=== PATIENT | male | born 1950 | race Two or more races ===

== ENCOUNTER 2017-01-11 13:12 | Emergency (ER) | payer OTHER ==
[~2017-01-11] VITALS: Ht 165.1 cm; Wt 90.7 kg
[~2017-01-11 13:12] MED LIST: ACYCLOVIR400 MG ORAL; CLOTRIM ANTIFUN15 GM TP
[2017-01-11] MEDS ORDERED: SIMVASTATIN40 MG ORAL (13:28)
[2017-01-11] MEDS ORDERED: TERAZOSIN HCL1 MG ORAL (13:28)
--- NOTE | 2017-01-11 13:43 | Emergency Room Report ---
History of Present Illness General Chief Complaint: Abdominal Pain Source: Patient Present Illness HPI Patient is a 66-year-old male who presented for increased epigastric and left- sided abdominal pain and cramping. Patient had intermittent episodes for the past 4 days. He states that he been having watery diarrhea. Patient had fever or vomiting. Patient prior history of hypertension. He denies prior abdominal surgeries. Allergies: Coded Allergies: No Known Allergies (Verified Allergy, Unknown, 12/16/08) Patient History Reviewed Nursing Documentation: PMH: Agreed, PSxH: Agreed Nursing Documentation-PM Past Medical History: No History, Except For Hx Hypertension: Yes Review of Systems All Other Systems: negative except mentioned in HPI Physical Exam Vital Signs Date Time Temp Pulse Resp B/P Pulse Ox O2 Delivery O2 Flow Rate FiO2 01/11/17 13:22 97.9 58 20 131/78 98 Room Air Sp02 EP Interpretation: reviewed, normal General Appearance: normal inspection, well appearing, no apparent distress, alert, GCS 15 Head: atraumatic ENT: normal ENT inspection, hearing grossly normal, normal voice Neck: normal inspection, full range of motion, supple, no bony tend Respiratory: normal inspection, lungs clear, normal breath sounds, no respiratory distress, no retraction, no wheezing Cardiovascular #1: regular rate, rhythm, no edema Gastrointestinal: normal inspection, normal bowel sounds, non tender, soft, no guarding, no hernia Genitourinary: no CVA tenderness Musculoskeletal: normal inspection, back normal, normal range of motion Neurologic: normal inspection, alert, oriented x3, responsive, cage cashier III-XII nml as tested, speech normal Psychiatric: normal inspection, judgement/insight normal, mood/affect normal Skin: normal inspection, normal color, no rash Medical Decision Making Diagnostic Impression: Primary Impression: Abdominal pain Additional Impressions: Gastroenteritis 1St degree AV block ER Course Patient presented for abdominal pain. Differential diagnoses included ischemic bowel, appendicitis, perforated viscus, abdominal aortic aneurysm, inferior myocardial infarction, viral gastroenteritis Because of complexity of patient's case laboratory testing and imaging studies were ordered. The patient was noted to be mildly dehydrated was started on IV fluids.Patient was given IV fluids as well as Mylanta with improvement.The patient is advised to follow up with primary care doctor in 1-2 days. Patient is advised to return if any worsening condition or if he began having a dizziness, weakness or if any changes in status that are concerning. Laboratory Tests Test 2/17/17 14:35 White Blood Count 7.0 K/UL (4.8-10.8) Red Blood Count 5.12 M/UL (4.70-6.10) Hemoglobin 14.3 G/DL (14.2-18.0) Hematocrit 43.7 % (42.0-52.0) Mean Corpuscular Volume 85 FL (80-99) Mean Corpuscular Hemoglobin 27.9 PG (27.0-31.0) Mean Corpuscular Hemoglobin Concent 32.7 G/DL (32.0-36.0) Red Cell Distribution Width 12.8 % (11.6-14.8) Platelet Count 227 K/UL (150-450) Mean Platelet Volume 6.5 FL (6.5-10.1) Neutrophils (%) (Auto) 62.8 % (45.0-75.0) Lymphocytes (%) (Auto) 24.1 % (20.0-45.0) Monocytes (%) (Auto) 11.0 % (1.0-10.0) H Eosinophils (%) (Auto) 1.7 % (0.0-3.0) Basophils (%) (Auto) 0.5 % (0.0-2.0) Prothrombin Time Pending Prothrombin Time INR Pending PTT Pending Urine Color Yellow Urine Appearance Clear Urine pH 5 (4.5-8.0) Urine Specific [place] 1.010 (1.005-1.035) Urine Protein Negative (NEGATIVE) Urine Glucose (UA) Negative (NEGATIVE) Urine Ketones Negative (NEGATIVE) Urine Occult Blood 1+ (NEGATIVE) H Urine Nitrite Negative (NEGATIVE) Urine Bilirubin Negative (NEGATIVE) Urine Urobilinogen Normal MG/DL (0.0-1.0) Urine Leukocyte Esterase Negative (NEGATIVE) Urine RBC 0-2 /HPF (0 - 0) H Urine WBC 0-2 /HPF (0 - 0) Urine Squamous Epithelial Cells Occasional /LPF Urine Bacteria Few /HPF (NONE) Sodium Level 140 mEQ/L (135-145) Potassium Level 4.3 mEQ/L (3.4-4.9) Chloride Level 102 mEQ/L (98-107) Carbon Dioxide Level 21 mEQ/L (20-30) Anion Gap 17 (5-15) H Blood Urea Nitrogen 11 mg/dL (7-23) Creatinine 0.9 mg/dL (0.7-1.2) Estimate Glomerular Filtration Rate > 60 mL/min (>60) Glucose Level 81 mg/dL (74-106) Calcium Level 8.1 mg/dL (8.6-10.2) L Total Bilirubin 0.3 mg/dL (0.0-1.2) Aspartate Amino Transferase (AST) 37 U/L (5-40) Alanine Aminotransferase (ALT) 32 U/L (3-41) Alkaline Phosphatase 91 U/L (40-129) Troponin I < 0.30 ng/mL (<=0.30) Total Protein 6.5 g/dL (6.6-8.7) L Albumin 3.9 g/dL (3.5-5.2) Globulin 2.6 g/dL Albumin/Globulin Ratio 1.5 (1.0-2.7) Lipase 33 U/L (< 60) EKG Diagnostic Results Rate: bradycardiac - 1st degree av block Rhythm: other ST Segments: no acute changes Last Vital Signs Date Time Temp Pulse Resp B/P Pulse Ox O2 Delivery O2 Flow Rate FiO2 01/11/17 13:22 97.9 58 20 131/78 98 Room Air Status: improved Disposition: HOME, SELF-CARE Condition: Stable Scripts Dicyclomine Hcl* (BENTYL*) 10 Mg Capsule 10 MG ORAL FOUR TIMES A DAY, #20 CAP Prov: Linus Wheatley 01/11/17 Loperamide HCl (Loperamide) 2 Mg Capsule 2 MG ORAL Q4H, #20 CAP 0 Refills Prov: Linus Wheatley 01/11/17 Linus Wheatley Jan 11, 2017 13:43
[2017-01-11] MEDS ORDERED: Dicyclomine HCl 10mg/5ml oral soln ORAL ONE (13:45)
[2017-01-11] MEDS ORDERED: Loperamide 2mg cap ORAL ONE (13:45)
[2017-01-11 14:31] VITALS: BP 128/70
[2017-01-11 14:58] LABS: BASOPHILS % (AUTO) 0.5 % (0.0-2.0); EOSINOPHILS % (AUTO) 1.7 % (0.0-3.0); LYMPHOCYTES % (AUTO) 24.1 % (20.0-45.0); MEAN CORPUSCULAR HEMOGLOBIN 27.9 PG (27.0-31.0); MEAN CORPUSCULAR HGB CONC 32.7 G/DL (32.0-36.0); MEAN CORPUSCULAR VOLUME 85 FL (80-99); MEAN PLATELET VOLUME 6.5 FL (6.5-10.1); NEUTROPHILS % (AUTO) 62.8 % (45.0-75.0); PLATELET COUNT 227 K/UL (150-450); RED BLOOD COUNT 5.12 M/UL (4.70-6.10); RED CELL DISTRIBUTION WIDTH 12.8 % (11.6-14.8)
[2017-01-11] MEDS ORDERED: BENTYL10 MG ORAL (15:00)
[2017-01-11] MEDS ORDERED: IMODIUM2 MG ORAL (15:00)
[2017-01-11 15:05] LABS: APPEARANCE,URINE CLEAR; KETONES,URINE NEGATIVE (NEGATIVE); LEUKOCYTE ESTERASE ,URINE NEGATIVE (NEGATIVE); NITRITE,URINE NEGATIVE (NEGATIVE); PH,URINE 5 (4.5-8.0); PROTEIN,URINE NEGATIVE (NEGATIVE); UROBILINOGEN,URINE NORMAL MG/DL (0.0-1.0)
[2017-01-11 15:18] LABS: ALANINE AMINOTRANSFERASE 32 U/L (3-41); ALBUMIN/GLOBULIN RATIO 1.5 (1.0-2.7); ANION GAP 17 (5-15); ASPARTATE AMINO TRANSFERASE 37 U/L (5-40); BACTERIA,URINE FEW /HPF; CALCIUM 8.1 mg/dL (8.6-10.2); CARBON DIOXIDE 21 mEQ/L (20-30); CHLORIDE 102 mEQ/L (98-107); CREATININE 0.9 mg/dL (0.7-1.2); GLOMERULAR FILTRATION RATE > 60 mL/min (>60); HEMOLYSIS 126; LIPASE 33 U/L (< 60); POTASSIUM 4.3 mEQ/L (3.4-4.9); RBC,URINE 0-2 /HPF (0 - 0); SODIUM 140 mEQ/L (135-145); SQUAMOUS EPITHELIAL CELL,UR OCCASIONAL /LPF (NONE/OCC); TOTAL PROTEIN 6.5 g/dL (6.6-8.7); WBC,URINE 0-2 /HPF (0 - 0)
[2017-01-11 15:20] LABS: TROPONIN I < 0.30 ng/mL (<=0.30)
[2017-01-11 15:27] LABS: PROTHROMBIN TIME 10.6 SEC (9.30-11.50)
[2017-01-11 16:02] VITALS: BP 128/70
== END 2017-01-11 16:03 | disposition home or self-care (01) ==
LOC: EMR 13:40
DX: K52.9 Noninfective gastroenteritis and colitis, unspecified (principal); I44.0 Atrioventricular block, first degree; I10 Essential (primary) hypertension
CPT/HCPCS: 36415; 80053; 81003; 83690; 84484; 85025; 85610; 85730; 96374; 96375; 99284; J2405

== ENCOUNTER 2017-02-10 14:14 | Emergency (ER) | payer OTHER ==
[~2017-02-10] VITALS: Ht 165.1 cm; Wt 90.7 kg
[~2017-02-10 14:14] MED LIST changes: +BENTYL10 MG ORAL; +IMODIUM2 MG ORAL; +SIMVASTATIN40 MG ORAL; +TERAZOSIN HCL1 MG ORAL
--- NOTE | 2017-02-10 14:56 | Emergency Room Report ---
History of Present Illness General Chief Complaint: Upper Respiratory Illness Source: Patient (JORDINFAMILIAROSALINE P.A.) Source: Patient (MARGARITA YUN D.O.) Present Illness HPI Patient complains of cough congestion for one week. Associated symptoms include shortness of breath, wheezing, fatigue, body aches, cough is nonproductive, chill. No protein or relieving factors.Denies any current n/v/f/ c/d, abd pain, back pain, neck pain, photophobia, phonophobia, CP or headache. (ROSALINE LOCO.AEdie) HPI Please refer to initial note for the history and exam Patient does complain of over one week of URI symptoms including cough and congestion Denies any chest pain or pleurisy (MARGARITA YUN D.O.) Allergies: Coded Allergies: No Known Allergies (Verified Allergy, Unknown, 12/16/08) Patient History Past Medical History: see triage record Pertinent Family History: none Reviewed Nursing Documentation: PMH: Agreed, PSxH: Agreed (MARGARITA YUN D.O.) Nursing Documentation-PMH Hx Hypertension: Yes (ROSALINE LOCO P.A.) Review of Systems All Other Systems: negative except mentioned in HPI (MARGARITA YUN D.O.) Physical Exam Vital Signs Date Time Temp Pulse Resp B/P Pulse Ox O2 Delivery O2 Flow Rate FiO2 02/10/17 14:31 99.7 97 18 132/78 98 Room Air (ROSALINE LOCO P.A.) 98% on room air which is a normal oxygenation Sp02 EP Interpretation: reviewed, normal General Appearance: well appearing, no apparent distress Head: normocephalic, atraumatic Eyes: bilateral eye EOMI, bilateral eye PERRL ENT: hearing grossly normal, normal pharynx, TMs + canals normal, uvula midline Neck: full range of motion, supple, no meningismus, no bony tend Respiratory: no rhonchi, no respiratory distress, no retraction, no accessory muscle use, crackles - Fine crackles noted both lower lobes Cardiovascular #1: normal peripheral pulses, regular rate, rhythm, no edema, no gallop, no JVD, no murmur Gastrointestinal: normal bowel sounds, non tender, soft, no mass, no organomegaly, non-distended, no guarding, no hernia, no pulsatile mass, no rebound Genitourinary: no CVA tenderness Musculoskeletal: normal inspection Neurologic: oriented x3, responsive, optical coating technician III-XII nml as tested, motor strength/ tone normal, sensory intact Psychiatric: mood/affect normal Skin: normal color, no rash, warm/dry, palpation normal Lymphatic: normal inspection, no adenopathy (MARGARITA YUN D.O.) Medical Decision Making PA Attestation Dr. Yun is my supervising physician with whom patient management has been discussed with. (ROSALINE LOCO) Diagnostic Impression: Primary Impression: Upper respiratory infection ER Course care of this patient was transferred to Dr. Yun (ROSALINE LOCO.Chuy) ER Course Patient is a fairly complex patient with multiple differential to consideration including but not limited to cardiac cardiopulmonary and vascular emergencies The patient's white blood cell count is minimally elevated Chest x-ray was normal Patient on reevaluation continues to saturate well lung sounds are appropriate The site appears the patient has symptoms of URI findings Will be placed on symptomatic medication and follow up closely Labs Test 02/10/17 15:30 White Blood Count 12.8 K/UL (4.8-10.8) Red Blood Count 4.97 M/UL (4.70-6.10) Hemoglobin 13.9 G/DL (14.2-18.0) Hematocrit 42.1 % (42.0-52.0) Mean Corpuscular Volume 85 FL (80-99) Mean Corpuscular Hemoglobin 28.0 PG (27.0-31.0) Mean Corpuscular Hemoglobin Concent 33.1 G/DL (32.0-36.0) Red Cell Distribution Width 12.6 % (11.6-14.8) Platelet Count 243 K/UL (150-450) Mean Platelet Volume 6.2 FL (6.5-10.1) Neutrophils (%) (Auto) 78.9 % (45.0-75.0) Lymphocytes (%) (Auto) 11.3 % (20.0-45.0) Monocytes (%) (Auto) 7.6 % (1.0-10.0) Eosinophils (%) (Auto) 1.4 % (0.0-3.0) Basophils (%) (Auto) 0.8 % (0.0-2.0) Urine Color Pale yellow Urine Appearance Clear Urine pH 6.5 (4.5-8.0) Urine Specific [place] 1.010 (1.005-1.035) Urine Protein Negative (NEGATIVE) Urine Glucose (UA) Negative (NEGATIVE) Urine Ketones Negative (NEGATIVE) Urine Occult Blood Negative (NEGATIVE) Urine Nitrite Negative (NEGATIVE) Urine Bilirubin Negative (NEGATIVE) Urine Urobilinogen Normal MG/DL (0.0-1.0) Urine Leukocyte Esterase 1+ (NEGATIVE) Urine RBC 0 /HPF (0 - 0) Urine WBC 2-4 /HPF (0 - 0) Urine Squamous Epithelial Cells Occasional /LPF Urine Bacteria Few /HPF (NONE) Sodium Level 141 mEQ/L (135-145) Potassium Level 3.5 mEQ/L (3.4-4.9) Chloride Level 101 mEQ/L (98-107) Carbon Dioxide Level 24 mEQ/L (20-30) Anion Gap 16 (5-15) Blood Urea Nitrogen 13 mg/dL (7-23) Creatinine 1.0 mg/dL (0.7-1.2) Estimat Glomerular Filtration Rate > 60 mL/min (>60) Glucose Level 100 mg/dL (74-106) Lactic Acid Level 1.40 mmol/L (0.66-2.22) Calcium Level 9.0 mg/dL (8.6-10.2) Total Bilirubin 0.2 mg/dL (0.0-1.2) Aspartate Amino Transf (AST/SGOT) 19 U/L (5-40) Alanine Aminotransferase (ALT/SGPT) 19 U/L (3-41) Alkaline Phosphatase 99 U/L (40-129) Total Protein 6.6 g/dL (6.6-8.7) Albumin 4.2 g/dL (3.5-5.2) Globulin 2.4 g/dL Albumin/Globulin Ratio 1.7 (1.0-2.7) (MARGARITA YUN.OEdie) EKG Diagnostic Results Rate: normal Rhythm: NSR ST Segments: no acute changes (MARGARITA YUN D.O.) Rhythm Strip Diag. Results EP Interpretation: yes Rate: 66 Rhythm: NSR, no PVC's, no ectopy (MARGARITA YUN.OEdie) Chest X-Ray Diagnostic Results EP Interpretation: Yes Findings: no consolidation, no effusion, no pneumothorax Number of Views: 1 (MARGARITA YUN D.O.) Last Vital Signs Date Time Temp Pulse Resp B/P Pulse Ox O2 Delivery O2 Flow Rate FiO2 02/10/17 14:31 99.7 97 18 132/78 98 Room Air (ROSALINE LOCO.Chuy) Status: improved (MARGARITA YUN D.O.) Disposition: HOME, SELF-CARE Condition: Improved Scripts Ibuprofen* (MOTRIN*) 600 Mg Tablet 600 MG ORAL Q8H Y for For Pain, #20 TAB 0 Refills Prov: MARGARITA YUN D.O. 02/10/17 Promethazine HCl/Codeine (Prometh-Codein 6.25-10 mg/5 ml) 5 Ml Syrup 5 ML PO QHS for 5 Days, ML Prov: MARGARITA YUN D.O. 02/10/17 Additional Instructions: Patient is provided with the discharge instructions notified to follow up with primary doctor in the next 2-3 days otherwise return to the er with any worsening symptoms. Please note that this report is being documented using [employer] technology. This can lead to erroneous entry secondary to incorrect interpretation by the dictating instrument. ROSALINE LOCO Feb 10, 2017 14:56 MARGARITA YUN D.O. Feb 10, 2017 22:15
[2017-02-10 15:41] VITALS: BP 127/99
[2017-02-10 15:46] LABS: BASOPHILS % (AUTO) 0.8 % (0.0-2.0); EOSINOPHILS % (AUTO) 1.4 % (0.0-3.0); LYMPHOCYTES % (AUTO) 11.3 % (20.0-45.0); MEAN CORPUSCULAR HGB CONC 33.1 G/DL (32.0-36.0); MEAN CORPUSCULAR VOLUME 85 FL (80-99); MEAN PLATELET VOLUME 6.2 FL (6.5-10.1); MONOCYTES % (AUTO) 7.6 % (1.0-10.0); NEUTROPHILS % (AUTO) 78.9 % (45.0-75.0); PLATELET COUNT 243 K/UL (150-450); RED BLOOD COUNT 4.97 M/UL (4.70-6.10); RED CELL DISTRIBUTION WIDTH 12.6 % (11.6-14.8); WHITE BLOOD COUNT 12.8 K/UL (4.8-10.8)
[2017-02-10 15:49] LABS: APPEARANCE,URINE CLEAR; KETONES,URINE NEGATIVE (NEGATIVE); LEUKOCYTE ESTERASE ,URINE 1+ (NEGATIVE); NITRITE,URINE NEGATIVE (NEGATIVE); PH,URINE 6.5 (4.5-8.0); PROTEIN,URINE NEGATIVE (NEGATIVE); UROBILINOGEN,URINE NORMAL MG/DL (0.0-1.0)
[2017-02-10 15:57] LABS: BACTERIA,URINE FEW /HPF; RBC,URINE 0 /HPF (0 - 0); SQUAMOUS EPITHELIAL CELL,UR OCCASIONAL /LPF (NONE/OCC)
[2017-02-10 16:04] LABS: ALANINE AMINOTRANSFERASE 19 U/L (3-41); ALBUMIN/GLOBULIN RATIO 1.7 (1.0-2.7); ANION GAP 16 (5-15); ASPARTATE AMINO TRANSFERASE 19 U/L (5-40); CARBON DIOXIDE 24 mEQ/L (20-30); CHLORIDE 101 mEQ/L (98-107); GLOMERULAR FILTRATION RATE > 60 mL/min (>60); HEMOLYSIS 7; POTASSIUM 3.5 mEQ/L (3.4-4.9); SODIUM 141 mEQ/L (135-145); TOTAL PROTEIN 6.6 g/dL (6.6-8.7)
[2017-02-10] MEDS ORDERED: PROMETH-CODEIN 65 ML PO (16:36)
[2017-02-10] MEDS ORDERED: IBUPROFEN600 MG ORAL (16:36)
[2017-02-10] MEDS ORDERED: AZITHROMYCIN250 MG ORAL (16:36)
[2017-02-10 16:57] VITALS: BP 127/99
--- NOTE | 2017-02-11 10:24 | Diagnostic Imaging Report ---
Indication: SOB Technique: One view of the chest Comparison: 12/18/2008 Findings: Lungs and pleural spaces are clear. Heart size is normal. Cervical spine fusion hardware is again demonstrated. The aorta is tortuous. Previously demonstrated atelectatic changes are no longer evident Impression: No acute process
--- NOTE | 2017-02-12 11:28 | Cardiology Report ---
APPROVED REPORT EKG Measurement Heart [id number] Sinus rhythm with 1st degree AV block Otherwise normal ECG
== END 2017-02-10 16:58 | disposition home or self-care (01) ==
LOC: EMR 14:57
DX: J06.9 Acute upper respiratory infection, unspecified (principal); I10 Essential (primary) hypertension
CPT/HCPCS: 36415; 71010; 80053; 81003; 83605; 85025; 87040; 93005; 99284

== ENCOUNTER → 2017-11-22 | Emergency (ER) | payer MEDICARE, OTHER ==
[~2017-11-22] VITALS: Ht 160 cm; Wt 68.0 kg
[~2017-11-22] MED LIST changes: +ANTI-DIARRHEA2 MG PO; +AZITHROMYCIN250 MG ORAL; +Dicyclomine HCl 10mg/5ml oral soln ORAL ONE; +IBUPROFEN600 MG ORAL; +KEFLEX500 MG ORAL; +Loperamide 2mg cap ORAL ONE; +PROMETH-CODEIN 65 ML PO
[2017-11-22 12:21] LABS: APPEARANCE,URINE CLEAR; BILIRUBIN, URINE NEGATIVE (NEGATIVE); GLUCOSE, URINE (UA) NEGATIVE (NEGATIVE); KETONES,URINE NEGATIVE (NEGATIVE); LEUKOCYTE ESTERASE ,URINE 1+ (NEGATIVE); NITRITE,URINE NEGATIVE (NEGATIVE); PH,URINE 5 (4.5-8.0); PROTEIN,URINE NEGATIVE (NEGATIVE); UROBILINOGEN,URINE NORMAL MG/DL (0.0-1.0)
[2017-11-22 12:24] LABS: COLOR,URINE YELLOW
[2017-11-22 12:41] LABS: BASOPHILS % (AUTO) 1.1 % (0.0-2.0); EOSINOPHILS % (AUTO) 1.7 % (0.0-3.0); HEMOGLOBIN 14.1 G/DL (14.2-18.0); LYMPHOCYTES % (AUTO) 22.3 % (20.0-45.0); MEAN CORPUSCULAR VOLUME 88 FL (80-99); MONOCYTES % (AUTO) 8.9 % (1.0-10.0); NEUTROPHILS % (AUTO) 66.1 % (45.0-75.0); PLATELET COUNT 244 K/UL (150-450); RED BLOOD COUNT 4.91 M/UL (4.70-6.10); RED CELL DISTRIBUTION WIDTH 12.9 % (11.6-14.8); WHITE BLOOD COUNT 7.7 K/UL (4.8-10.8)
[2017-11-22 12:49] LABS: ANION GAP 10 mmol/L (5-15); BLOOD UREA NITROGEN 14 mg/dL (7-18); CALCIUM 7.9 MG/DL (8.5-10.1); CARBON DIOXIDE 25 MMOL/L (21-32); CHLORIDE 111 MMOL/L (98-107); POTASSIUM 3.8 MMOL/L (3.5-5.1); SODIUM 145 MMOL/L (136-145)
[2017-11-22 12:56] LABS: ALANINE AMINOTRANSFERASE 46 U/L (12-78); ALBUMIN/GLOBULIN RATIO 1.2 (1.0-2.7); ALKALINE PHOSPHATASE 122 U/L (46-116); ASPARTATE AMINO TRANSFERASE 26 U/L (15-37); BILIRUBIN,TOTAL 0.3 MG/DL (0.2-1.0)
[2017-11-22 13:00] VITALS: BP 135/79
[2017-11-22 13:55] VITALS: BP 135/79
--- NOTE | 2017-11-22 13:58 | Diagnostic Imaging Report ---
Indication: Abdominal pain Technique: Continuous helical transaxial imaging of the abdomen and pelvis was obtained from the lung bases to the pubic symphysis. No intravenous contrast was administered. Coronal 2-D reformats were also obtained. Automatic Exposure Control was utilized. Total Dose length Product (DLP): 1080.[address] Dose Index Volume (CTDIvol): 19.75 mGy Comparison: 12/15/2013, 10/06/2013 Findings: Lung bases are clear. Normal appendix noted. Mild arterial calcifications demonstrated distal aorta and iliac arteries. Few diverticula are noted. There is no evidence of acute diverticulitis. There is no nephrolithiasis or hydronephrosis identified. Gallbladder is contracted but grossly unremarkable otherwise. There is a tiny liver hypodensity too small to characterize. Spleen is normal size. Accessory spleen noted. There is no ascites or free air. Prostate calcification noted. Small left inguinal hernia is suspected. IMPRESSION: No acute findings appreciated. Several chronic findings as described above. The CT scanner at [facility] is accredited by the [employer] and the scans are performed using dose optimization techniques as appropriate to a performed exam including Automatic Exposure control.
--- NOTE | 2017-11-29 01:07 | Emergency Room Report ---
History of Present Illness General Chief Complaint: Nausea, Vomiting, and Diarrhea Present Illness HPI Patient is a 67-year-old male who presented after increased nausea and vomiting. Patient gradual onset of symptoms in the past few days. Patient reported having multiple episodes of vomiting as well as diarrhea. He denied hematemesis or bloody stools. The patient reported having primarily epigastric pain which is crampy in nature. Allergies: Coded Allergies: No Known Allergies (Verified Allergy, Unknown, 12/16/08) Patient History Past Medical History: see triage record Reviewed Nursing Documentation: PMH: Agreed, PSxH: Agreed Nursing Documentation-PMH Hx Hypertension: Yes Review of Systems All Other Systems: negative except mentioned in HPI Physical Exam Vital Signs Date Time Temp Pulse Resp B/P (MAP) Pulse Ox O2 Delivery O2 Flow Rate FiO2 11/22/17 11:25 97.3 71 20 132/75 99 Room Air Sp02 EP Interpretation: reviewed, normal General Appearance: normal inspection, well appearing, no apparent distress, alert, GCS 15, non-toxic Head: atraumatic ENT: normal ENT inspection, hearing grossly normal, normal voice Neck: normal inspection, full range of motion, supple, no bony tend Respiratory: normal inspection, lungs clear, normal breath sounds, no respiratory distress, no retraction, no wheezing Cardiovascular #1: regular rate, rhythm, no edema Gastrointestinal: normal inspection, normal bowel sounds, non tender, soft, no guarding, no hernia Genitourinary: no CVA tenderness Musculoskeletal: normal inspection, back normal, normal range of motion Neurologic: normal inspection, alert, oriented x3, responsive, hydraulic tester III-XII nml as tested, speech normal Psychiatric: normal inspection, judgement/insight normal, mood/affect normal Skin: normal inspection, normal color, no rash Medical Decision Making Diagnostic Impression: Primary Impression: Gastroenteritis Additional Impression: UTI (urinary tract infection) ER Course Patient presented for abdominal pain. Differential diagnoses included ischemic bowel, appendicitis, perforated viscus, abdominal aortic aneurysm, inferior myocardial infarction, viral gastroenteritis. Because of complexity of patient' s case laboratory testing and imaging studies were ordered.The CT imaging showed no evidence of obstruction or appendicitis. I laboratory testing showed evidence of urinary tract infection. Patient was given IV fluids as well as IV antiemetics. The patient is advised to follow up with primary care doctor in 1-2 days. Patient is advised to return if any worsening condition or if any changes in status that are concerning. This report is dictated with [employer] desk officer software which may occasionally lead to discrepancies related to use of this software. Labs Test 11/22/17 11:30 11/22/17 12:22 Urine Color Yellow Urine Appearance Clear Urine pH 5 (4.5-8.0) Urine Specific [place] 1.025 (1.005-1.035) Urine Protein Negative (NEGATIVE) Urine Glucose (UA) Negative (NEGATIVE) Urine Ketones Negative (NEGATIVE) Urine Occult Blood Negative (NEGATIVE) Urine Nitrite Negative (NEGATIVE) Urine Bilirubin Negative (NEGATIVE) Urine Urobilinogen Normal MG/DL (0.0-1.0) Urine Leukocyte Esterase 1+ (NEGATIVE) Urine RBC 0-2 /HPF (0 - 0) Urine WBC 2-4 /HPF (0 - 0) Urine Squamous Epithelial Cells Occasional /LPF Urine Bacteria Occasional /HPF (NONE) Urine Mucus Moderate /LPF (NONE/OCC) White Blood Count 7.7 K/UL (4.8-10.8) Red Blood Count 4.91 M/UL (4.70-6.10) Hemoglobin 14.1 G/DL (14.2-18.0) Hematocrit 43.0 % (42.0-52.0) Mean Corpuscular Volume 88 FL (80-99) Mean Corpuscular Hemoglobin 28.8 PG (27.0-31.0) Mean Corpuscular Hemoglobin Concent 32.8 G/DL (32.0-36.0) Red Cell Distribution Width 12.9 % (11.6-14.8) Platelet Count 244 K/UL (150-450) Mean Platelet Volume 6.5 FL (6.5-10.1) Neutrophils (%) (Auto) 66.1 % (45.0-75.0) Lymphocytes (%) (Auto) 22.3 % (20.0-45.0) Monocytes (%) (Auto) 8.9 % (1.0-10.0) Eosinophils (%) (Auto) 1.7 % (0.0-3.0) Basophils (%) (Auto) 1.1 % (0.0-2.0) Sodium Level 145 MMOL/L (136-145) Potassium Level 3.8 MMOL/L (3.5-5.1) Chloride Level 111 MMOL/L (98-107) Carbon Dioxide Level 25 MMOL/L (21-32) Anion Gap 10 mmol/L (5-15) Blood Urea Nitrogen 14 mg/dL (7-18) Creatinine 1.0 MG/DL (0.55-1.30) Estimat Glomerular Filtration Rate > 60 mL/min (>60) Glucose Level 92 MG/DL (74-106) Calcium Level 7.9 MG/DL (8.5-10.1) Total Bilirubin 0.3 MG/DL (0.2-1.0) Aspartate Amino Transf (AST/SGOT) 26 U/L (15-37) Alanine Aminotransferase (ALT/SGPT) 46 U/L (12-78) Alkaline Phosphatase 122 U/L (46-116) Total Protein 7.3 G/DL (6.4-8.2) Albumin 4.0 G/DL (3.4-5.0) Globulin 3.3 g/dL Albumin/Globulin Ratio 1.2 (1.0-2.7) Last Vital Signs Date Time Temp Pulse Resp B/P (MAP) Pulse Ox O2 Delivery O2 Flow Rate FiO2 11/22/17 13:55 97.5 90 20 135/79 99 Room Air Status: improved Disposition: HOME, SELF-CARE Condition: Stable Scripts Cephalexin* (KEFLEX*) 500 Mg Capsule 500 MG ORAL Q6H, #28 CAP 0 Refills Prov: Linus Wheatley 11/22/17 Loperamide Hcl (ANTI-DIARRHEA) 2 Mg Tablet 2 MG PO Q12HR, #14 TAB Prov: Linus Wheatley 11/22/17 Dicyclomine Hcl* (BENTYL*) 10 Mg Capsule 10 MG ORAL FOUR TIMES A DAY, #20 CAP Prov: Linus Wheatley 11/22/17 Patient Instructions: Viral Gastroenteritis, Adult Linus Wheatley Nov 29, 2017 01:07
== END | disposition home or self-care (01) ==
LOC: EMR 13:03
DX: K52.9 Noninfective gastroenteritis and colitis, unspecified (principal); N39.0 Urinary tract infection, site not specified; I10 Essential (primary) hypertension
CPT/HCPCS: 36415; 74176; 80053; 81001; 85025; 99284

== ENCOUNTER 2018-02-27 12:34 | Emergency (ER) | payer MEDICARE ==
[~2018-02-27] VITALS: Ht 165.1 cm; Wt 90.7 kg
[~2018-02-27 12:34] MED LIST changes: -Dicyclomine HCl 10mg/5ml oral soln ORAL ONE; -Loperamide 2mg cap ORAL ONE
[2018-02-27 12:59] VITALS: BP 133/81
--- NOTE | 2018-02-27 13:09 | Emergency Room Report ---
History of Present Illness General Chief Complaint: Upper Respiratory Illness Source: Patient, Medical Record Present Illness HPI 67-year-old male presents to the emergency department complaining of nonproductive cough, sore throat that is 6 out of 10 in severity, nasal congestion, rhinorrhea and progressive pain in the rib cage area with coughing. Patient states his symptoms of been ongoing for 1 week. Pt. also reports painful cold sores on the lower lilp. Patient has a history of high blood pressure and arthritis. Patient denies orthopnea or history of heart problems. Patient denies lower extremity edema. Denies left sided chest or arm pain, Palpitations, LOC, AMS, dizziness, Changes in Vision, Sensation, paresthesias, or a sudden severe headache. Allergies: Coded Allergies: No Known Allergies (Verified Allergy, Unknown, 12/16/08) Patient History Past Medical History: see triage record, HTN Past Surgical History: none Pertinent Family History: none Reviewed Nursing Documentation: PMH: Agreed; PSxH: Agreed Nursing Documentation-PMH Past Medical History: No Stated History Hx Hypertension: Yes Review of Systems All Other Systems: negative except mentioned in HPI Physical Exam Vital Signs Date Time Temp Pulse Resp B/P (MAP) Pulse Ox O2 Delivery O2 Flow Rate FiO2 4/18 12:43 98.5 63 18 133/81 95 Room Air 98.4 Sp02 EP Interpretation: reviewed, normal General Appearance: no apparent distress, alert, GCS 15, non-toxic Head: normocephalic, atraumatic ENT: hearing grossly normal, normal pharynx, normal voice, other - two cold sores on the lower lip. Neck: full range of motion, no meningismus, no bony tend Respiratory: chest non-tender, lungs clear, normal breath sounds, no respiratory distress, no wheezing, speaking full sentences Cardiovascular #1: regular rate, rhythm, no edema Gastrointestinal: non tender, soft Musculoskeletal: back normal, gait/station normal, normal range of motion, non- tender Neurologic: alert, oriented x3, responsive, motor strength/tone normal, sensory intact, normal gait, speech normal, grossly normal Psychiatric: judgement/insight normal Skin: normal color, warm/dry, well hydrated, other - two cold sores on the lower lip. Lymphatic: no adenopathy Medical Decision Making PA Attestation Dr. Wheatley is my supervising Physician whom patient management has been discussed with. Diagnostic Impression: Primary Impression: Upper respiratory symptom Additional Impression: Cold sore ER Course 67-year-old male presents to the emergency department complaining of nonproductive cough, sore throat that is 6 out of 10 in severity, nasal congestion, rhinorrhea and progressive pain in the rib cage area with coughing. Patient states his symptoms of been ongoing for 1 week. Pt. also reports painful cold sores on the lower lilp. Patient has a history of high blood pressure and arthritis. Patient denies orthopnea or history of heart problems. Patient denies lower extremity edema. Denies left sided chest or arm pain, Palpitations, LOC, AMS, dizziness, Changes in Vision, Sensation, paresthesias, or a sudden severe headache. Ddx considered but are not limited to URI, pneumonia, PE, strep pharyngitis, meningitis, MA/CHF Vital signs: Pt.is afebrile VS are WNL H&PE are most consistent with upper respiratory infection no evidence to suggest bacteria at this time. I did consider cardiac etiology due to patient' s age and history of high blood pressure. However patient's presentation is nontoxic and in no acute distress. Given symptoms of multiple body systems primarily in the upper respiratory area my impression is that he is presenting most consistently with a viral upper respiratory infection. ORDERS: none required at this time, the diagnosis is clinical ED INTERVENTIONS: None required at this time. This patient is given ED return precautions for worsening or new symptoms. I' ve instructed the patient follow up with his primary care provider in approximately 3-5 days. Discussed with patient that he'll be treated conservatively in addition to oral acyclovir for his cold sores DISCHARGE: At this time pt. is stable for d/c to home. Will provide printed patient care instructions, and any necessary prescriptions. Care plan and follow up instructions have been discussed with the patient prior to discharge. Last Vital Signs Date Time Temp Pulse Resp B/P (MAP) Pulse Ox O2 Delivery O2 Flow Rate FiO2 02/27/18 12:43 98.5 63 18 133/81 95 Room Air 98.4 Disposition: HOME, SELF-CARE Condition: Stable Scripts Acetaminophen* (TYLENOL EXTRA STRENGTH*) 500 Mg Tablet 500 MG ORAL Q6H PRN for Mild Pain/Temp > 100.5, #20 TAB 0 Refills Prov: Zahra Lee.Chuy 02/27/18 Loratadine/Pseudoephedrine (CLARITIN-D 12 HOUR TABLET) 1 Each Tab.er.12h 1 TAB ORAL EVERY 12 HOURS for 7 Days, #14 TAB Prov: Zahra Lee 02/27/18 Codeine/Promethazine Hcl* (PROMETHAZINE-CODEINE SYRUP*) 118 Ml Syrup 5 ML ORAL Q6H PRN for For Cough, #120 ML 0 Refills Prov: Zahra Lee 02/27/18 Acyclovir* (ZOVIRAX*) 800 Mg Tablet 800 MG ORAL THREE TIMES A DAY for 7 Days, #21 CAP 0 Refills Prov: Zahra Lee 02/27/18 Patient Instructions: Cold Sore, [id number], Upper Respiratory Infection, Adult Additional Instructions: Take medications as directed. Follow up with a Primary Care Provider in 3-5 days, even if your symptoms have resolved. --Please review list of primary care clinics, if you do not already have a primary care provider Return sooner to ED if new symptoms occur, or current symptoms become worse. Do not drink alcohol, drive, or operate heavy machinery while taking Cough Syrup as this may cause drowsiness. - Please note that this Emergency Department Report was dictated using [employer] machine worker technology software, occasionally this can lead to erroneous entry secondary to interpretation by the dictation equipment. Zahra Lee Feb 27, 2018 13:09
[2018-02-27] MEDS ORDERED: TYLENOL EXTRA500 MG ORAL (13:29)
[2018-02-27] MEDS ORDERED: PROMETHAZINE-C118 M1 ORAL (13:29)
[2018-02-27] MEDS ORDERED: CLARITIN-D 121 EAC1 ORAL (13:29)
[2018-02-27] MEDS ORDERED: ZOVIRAX800 MG ORAL (13:29)
[2018-02-27 13:41] VITALS: BP 122/78
== END 2018-02-27 13:43 | disposition home or self-care (01) ==
LOC: EMR 13:23
DX: R05 Cough (principal); B00.1 Herpesviral vesicular dermatitis; I10 Essential (primary) hypertension
CPT/HCPCS: 99284

== ENCOUNTER 2018-03-02 03:57 | Emergency (ER) | payer MEDICARE ==
[~2018-03-02] VITALS: Ht 162.6 cm; Wt 90.7 kg
[~2018-03-02 03:57] MED LIST changes: +CLARITIN-D 121 EAC1 ORAL; +PROMETHAZINE-C118 M1 ORAL; +TYLENOL EXTRA500 MG ORAL; +ZOVIRAX800 MG ORAL
[2018-03-02 04:15] VITALS: BP 148/89
[2018-03-02] MEDS ORDERED: Ipratropium 0.02% Inh Soln 2.5ml UD HHN ONE (04:15)
[2018-03-02] MEDS ORDERED: Albuterol ud Inhalation HHN ONE (04:15)
--- NOTE | 2018-03-02 04:29 | Emergency Room Report ---
History of Present Illness General Chief Complaint: Upper Respiratory Illness Source: Patient, Medical Record Present Illness HPI Patient presents with complaints of cough he reports that the cough has persisted since his last visit here he was 3 days ago here And reports the medicine is not helping denies any chest pain however he does have a sore throat and also complains of low-grade fever Denies any posterior neck pain or photophobia denies any recent travel denies any pleurisy Allergies: Coded Allergies: No Known Allergies (Verified Allergy, Unknown, 12/16/08) Patient History Past Medical History: see triage record Pertinent Family History: none Reviewed Nursing Documentation: PMH: Agreed; PSxH: Agreed Nursing Documentation-PMH Hx Hypertension: Yes Review of Systems All Other Systems: negative except mentioned in HPI Physical Exam Vital Signs Date Time Temp Pulse Resp B/P (MAP) Pulse Ox O2 Delivery O2 Flow Rate FiO2 03/02/18 04:01 98.3 70 18 148/89 94 Room Air 98.2 Sp02 EP Interpretation: reviewed, normal General Appearance: well appearing, no apparent distress Head: normocephalic, atraumatic Eyes: bilateral eye PERRL, bilateral eye EOMI ENT: hearing grossly normal, normal pharynx, TMs + canals normal, uvula midline Neck: full range of motion, supple, no meningismus, no bony tend Respiratory: lungs clear, normal breath sounds, no rhonchi, no respiratory distress, no retraction, no accessory muscle use Cardiovascular #1: normal peripheral pulses, regular rate, rhythm, no edema, no gallop, no JVD, no murmur Gastrointestinal: normal bowel sounds, non tender, soft, no mass, no organomegaly, non-distended, no guarding, no hernia, no pulsatile mass, no rebound Genitourinary: no CVA tenderness Musculoskeletal: normal inspection Neurologic: oriented x3, responsive, hereditary cancer program coordinator III-XII nml as tested, motor strength/ tone normal, sensory intact Psychiatric: mood/affect normal Skin: normal color, no rash, warm/dry, palpation normal Lymphatic: normal inspection, no adenopathy Medical Decision Making Diagnostic Impression: Primary Impression: Atypical pneumonia ER Course Given the patient's repeat presentation continued discomfort X-ray imaging was obtained Left lower lobe is difficult to evaluate no obvious pneumothorax otherwise Patient placed on oral antibiotics and will have initial conservative outpatient trial Chest X-Ray Diagnostic Results Chest X-Ray Diagnostic Results : Chest X-Ray Ordered: Yes # of Views/Limited/Complete: 1 View Indication: Shortness of Breath EP Interpretation: Yes Interpretation: no consolidation, no effusion, no pneumothorax, other Impression: Other - Left lower lobe atelectasis Electronically Signed by: Giles Goff DO Last Vital Signs Date Time Temp Pulse Resp B/P (MAP) Pulse Ox O2 Delivery O2 Flow Rate FiO2 03/02/18 04:01 98.3 70 18 148/89 94 Room Air 98.2 Status: improved Disposition: HOME, SELF-CARE Condition: Improved Scripts Prednisone* (PREDNISONE*) 20 Mg Tablet 20 MG ORAL BID, #5 TAB Prov: Giles Goff DO 03/02/18 Albuterol Sulfate* (ALBUTEROL SULFATE MDI*) 8.5 Gm Hfa.aer.ad 2 PUFF INH Q4H PRN for cough/wheezing, #1 EA 0 Refills Prov: Giles Goff DO 03/02/18 Azithromycin* (ZITHROMAX*) 250 Mg Tablet 250 MG ORAL DAILY, #6 TAB 0 Refills Take two tablets by mouth today, then take one tablet by mouth daily for four days Prov: iGles Goff DO 03/02/18 Additional Instructions: Patient is provided with the discharge instructions notified to follow up with primary doctor in the next 2-3 days otherwise return to the er with any worsening symptoms. Please note that this report is being documented using [employer] technology. This can lead to erroneous entry secondary to incorrect interpretation by the dictating instrument. Giles Goff DO Mar 02, 2018 04:29
[2018-03-02] MEDS ORDERED: PREDNISONE20 MG ORAL (05:13)
[2018-03-02] MEDS ORDERED: AZITHROMYCIN250 MG ORAL (05:13)
[2018-03-02] MEDS ORDERED: ALBUTEROL SULF8.5 GM INH (05:13)
[2018-03-02 05:28] VITALS: BP 148/89
--- NOTE | 2018-03-02 11:29 | Diagnostic Imaging Report ---
Indication: Cough Comparison: [birth year]10[birth year]1970 A single view chest radiograph was obtained. Findings: No definite infiltrate or pulmonary vascular congestion identified. The heart is enlarged. The aorta is mildly enlarged consistent with atherosclerotic vascular disease. The bones are osteopenic. Impression: No acute disease
== END 2018-03-02 05:29 | disposition home or self-care (01) ==
LOC: EMR 04:49
DX: J18.9 Pneumonia, unspecified organism (principal); I10 Essential (primary) hypertension
CPT/HCPCS: 71045; 94640; 94664; 99284

== ENCOUNTER 2018-04-15 10:05 | Emergency (ER) | payer MEDICARE, MEDICAID ==
[~2018-04-15] VITALS: Ht 152.4 cm; Wt 90.7 kg
[~2018-04-15 10:05] MED LIST changes: +ALBUTEROL SULF8.5 GM INH; +PREDNISONE20 MG ORAL
[2018-04-15] MEDS ORDERED: Isovue-300 100ml vial INJ PRN (11:00)
[2018-04-15] MEDS ORDERED: Norco 5mg/325mg tab ORAL ONE (11:00)
[2018-04-15 11:10] LABS: BASOPHILS % (AUTO) 1.1 % (0.0-2.0); EOSINOPHILS % (AUTO) 1.7 % (0.0-3.0); HEMATOCRIT 40.3 % (42.0-52.0); HEMOGLOBIN 13.6 G/DL (14.2-18.0); LYMPHOCYTES % (AUTO) 23.4 % (20.0-45.0); MEAN CORPUSCULAR VOLUME 85 FL (80-99); MONOCYTES % (AUTO) 7.3 % (1.0-10.0); NEUTROPHILS % (AUTO) 66.5 % (45.0-75.0); PLATELET COUNT 222 K/UL (150-450); RED BLOOD COUNT 4.75 M/UL (4.70-6.10); RED CELL DISTRIBUTION WIDTH 12.7 % (11.6-14.8); WHITE BLOOD COUNT 7.4 K/UL (4.8-10.8)
[2018-04-15 11:35] LABS: ANION GAP 7 mmol/L (5-15); BLOOD UREA NITROGEN 13 mg/dL (7-18); CALCIUM 8.6 MG/DL (8.5-10.1); CARBON DIOXIDE 27 MMOL/L (21-32); CHLORIDE 108 MMOL/L (98-107); CREATININE 1.1 MG/DL (0.55-1.30); POTASSIUM 3.5 MMOL/L (3.5-5.1); SODIUM 142 MMOL/L (136-145)
[2018-04-15 11:37] LABS: INR 0.9 (0.9-1.1)
[2018-04-15 11:40] LABS: ALANINE AMINOTRANSFERASE 34 U/L (12-78); ALBUMIN 3.8 G/DL (3.4-5.0); ALBUMIN/GLOBULIN RATIO 1.2 (1.0-2.7); ALKALINE PHOSPHATASE 98 U/L (46-116); ASPARTATE AMINO TRANSFERASE 22 U/L (15-37); BILIRUBIN,TOTAL 0.4 MG/DL (0.2-1.0)
--- NOTE | 2018-04-15 12:02 | Diagnostic Imaging Report ---
Indications: Reason For Exam: PAIN Technique: Three views of the right knee Comparison: None Findings: No acute fractures. No dislocations. Joint spaces are preserved. No radiopaque foreign body. Normal mineralization. There is a small spur on the articular surface of the inferior pole of the patella. Impression: No acute process Minimal degenerative changes
[2018-04-15] MEDS ORDERED: NORCO 5-325 TA1 EACH ORAL (12:17)
[2018-04-15 12:44] VITALS: BP 148/74
--- NOTE | 2018-04-16 13:20 | Diagnostic Imaging Report ---
APPROVED REPORT CPT Code: 58572 Present Symptoms Comments: RIGHT HEATHER PAIN AND SWELLING RIGHT LEG: Venous imaging reveals a patent deep venous system. There is no evidence of thrombus within the femoral, popliteal or tibial segments. The greater saphenous vein is also within normal limits. Doppler indicates normal spontaneous flow within these segments. Incidental finding: Cystic, fluid-filled structure was noted around anterior-lateral knee area, measuring (3.2 cm x 1.1 cm).
--- NOTE | 2018-04-16 21:18 | Emergency Room Report ---
History of Present Illness General Chief Complaint: Lower Extremity Injury Source: Patient Present Illness HPI Patient is a 67-year-old male who presented after increased right knee pain. The patient reports having injury approximately 3-4 days prior to arrival in which he felt a pop in his right knee. The patient was having increased pain and swelling after the injury. He denies any fever. The patient states that he had been taking ibuprofen without any relief. The patient denies any numbness or weakness to his extremity. Allergies: Coded Allergies: No Known Allergies (Verified Allergy, Unknown, 12/16/08) Patient History Reviewed Nursing Documentation: PMH: Agreed; PSxH: Agreed Nursing Documentation-PMH Hx Hypertension: Yes Review of Systems All Other Systems: negative except mentioned in HPI Physical Exam Vital Signs Date Time Temp Pulse Resp B/P (MAP) Pulse Ox O2 Delivery O2 Flow Rate FiO2 04/15/18 10:10 98.2 69 18 137/68 95 Room Air 98.2 Sp02 EP Interpretation: reviewed, normal General Appearance: normal inspection, well appearing, no apparent distress, alert, GCS 15 Head: atraumatic ENT: normal ENT inspection, hearing grossly normal, normal voice Neck: normal inspection, full range of motion, supple, no bony tend Respiratory: normal inspection, lungs clear, normal breath sounds, no respiratory distress, no retraction, no wheezing Cardiovascular #1: regular rate, rhythm, no edema Cardiovascular #2: 3+ dorsalis pedis (R), 3+ dorsalis pedis (L) Gastrointestinal: normal inspection, normal bowel sounds, non tender, soft, no guarding, no hernia Genitourinary: no CVA tenderness Musculoskeletal: normal inspection, back normal, decreased range of motion, swelling - right knee , other - minimal laxity on medial stress and anterior drawer Neurologic: normal inspection, alert, oriented x3, responsive, assignment officer III-XII nml as tested, speech normal Psychiatric: normal inspection, judgement/insight normal, mood/affect normal Skin: normal inspection, normal color, no rash Medical Decision Making Diagnostic Impression: Primary Impression: Right knee sprain ER Course Patient presented for knee pain. Differential diagnosis included was not limited to popliteal aneurysm, arthritis, dislocation, ligamentous injury, septic joint among others. Ultrasound of the right lower extremity showed no evidence of deep venous thrombosis. The x-ray imaging of the right knee the 4 views read by radiology showed no evidence of acute fracture or malalignment. The patient was placed in a knee mobilizer. He is given prescription for pain medication. He is advised to follow-up with primary care physician for further evaluation and MRI as needed. Last Vital Signs Date Time Temp Pulse Resp B/P (MAP) Pulse Ox O2 Delivery O2 Flow Rate FiO2 04/15/18 12:44 98.4 65 18 148/74 97 Room Air 208.8 Status: improved Disposition: HOME, SELF-CARE Condition: Stable Scripts Hydrocodone Bit/Acetaminophen 5-325* (NORCO 5-325*) 1 Each Tablet 1 TAB ORAL Q6H PRN for For Pain, #20 TAB 0 Refills Prov: Linus Wheatley MD 04/15/18 Patient Instructions: Knee Sprain Linus Wheatley MD April 16, 2018 21:18
== END 2018-04-15 12:44 | disposition home or self-care (01) ==
LOC: EMR 10:28
DX: S83.91XA Sprain of unspecified site of right knee, initial encounter (principal); X50.9XXA Other and unspecified overexertion or strenuous movements or postures, initial encounter; Y92.9 Unspecified place or not applicable; M79.89 Other specified soft tissue disorders; I10 Essential (primary) hypertension
CPT/HCPCS: 36415; 80053; 85025; 85610; 85730; 93971; 99284